=== PATIENT | female | born 1960 | race Caucasian/White ===

== ENCOUNTER → 2018-04-26 | Outpatient (CLI) | END | disposition home or self-care (01) ==

== ENCOUNTER → 2018-05-24 | Outpatient (CLI) | END | disposition home or self-care (01) ==

== ENCOUNTER → 2018-06-02 | Outpatient (CLI) | END | disposition home or self-care (01) ==

== ENCOUNTER → 2018-06-21 | Outpatient (CLI) | END | disposition home or self-care (01) ==

== ENCOUNTER 2018-07-01 06:10 | Observation (INO) | END 2018-07-01 14:46 | disposition home health service (06) ==

== ENCOUNTER 2018-07-15 11:06 | Emergency (ER) | END 2018-07-15 12:41 | disposition home or self-care (01) ==

== ENCOUNTER → 2018-07-19 | Outpatient (CLI) | END | disposition home or self-care (01) ==

== ENCOUNTER → 2018-08-30 | Outpatient (CLI) | END | disposition home or self-care (01) ==

== ENCOUNTER → 2018-11-22 | Outpatient (CLI) | payer BC ==
--- NOTE | 2018-11-22 10:04 | PN ---
Date/Time of Note Date/Time of Note DATE: 11/22/18 TIME: 10:01 Assessment/Plan VTE Prophylaxis Pharmacological prophylaxis: other Assessment/Plan Assessment/Plan 58-year-old female who is progressing well after left knee replacement. Her lateral partial knee replacement has healed well and should allow her to do unrestricted activity. The patient is advised to follow-up annually for x-rays. Subjective 24 Hr Interval Summary Free Text/Dictation Hailey is here for follow-up of left lateral unicondylar knee replacement. She is progressing well. She has some residual soreness but is able to do all her activities without discomfort. She denies fever or chills and is pleased with her outcome Exam/Review of Systems Exam Vitals Vital signs are stable, patient is afebrile Exam Examination of the left knee shows full range of motion. There is a healed incision with minimal swelling. There is mild lateral tenderness. There is no instability and no neurovascular deficit. X-rays of the left knee show lateral unicondylar knee replacement with no evidence of loosening ADELE MCKEON Nov 22, 2018 10:04
--- NOTE | 2018-11-24 04:26 | RADRPT ---
PROCEDURE: Left knee x-ray CLINICAL INDICATION: PAIN TECHNIQUE: AP, and lateral views of the knee were obtained. COMPARISON: KNEE 08/30/2018 FINDINGS: The osseous mineralization appears decreased.. No acute fracture or dislocation is seen. There is a medial femorotibial compartment unicompartmental arthroplasty in anatomic alignment. There is a sm all joint effusion. IMPRESSION: 1. Left knee medial femorotibial compartment unicompartmental arthroplasty in anatomic alignment. 2. No radiographic evidence of acute osseous abnormality. [facility] Physician Eric Date Time Electronically viewed and signed by Physician Eric on 11/24/2018 04:26 CS/
== END | disposition home or self-care (01) ==
LOC: HKI 08:55
PROVIDERS: ATTEND Orthopaedic Surgery
DX: Z09 Encounter for follow-up examination after completed treatment for conditions other than malignant neoplasm (principal); Z96.652 Presence of left artificial knee joint
CPT/HCPCS: 73560; G0463

== ENCOUNTER → 2019-05-23 | Outpatient (CLI) | payer BC | END | disposition home or self-care (01) | LOC: LAB 08:52 | PROVIDERS: ATTEND Internal Medicine | DX: E78.5 Hyperlipidemia, unspecified (principal); D64.9 Anemia, unspecified | CPT/HCPCS: 80053; 80061; 85025; 86140 ==